=== PATIENT | male | born 1960 | race Caucasian/White ===

== ENCOUNTER 2016-12-21 12:17 | Emergency (ER) | payer OTHER ==
[~2016-12-21] VITALS: Ht 177.8 cm; Wt 125.0 kg
[~2016-12-21 12:17] MED LIST: BUPROPION XL150 MG PO; CLEOCIN300 MG PO; CLINDAMYCIN HC300 MG PO; FUROSEMIDE80 MG PO; GLIPIZIDE5 MG PO; GLUCOPHAGE1000 MG PO; INVOKANA300 MG PO; LORTAB 5-325 M1 EACH PO; LOSARTAN POTASS50 MG PO; LYRICA200 MG PO; METOLAZONE2.5 MG PO; MOTRIN600 MG PO; NEURONTIN600 MG PO; SUBOXONE 8 MG-1 EAC2 SL; TENORMIN25 MG PO; TESTOSTERO200 MG/12 IM
[2016-12-21 13:09] LABS: HEMATOCRIT 54.5 % (38.0-50.0); MCH 32.5 PG (29.0-34.0); MCHC 32.7 G/DL (30.0-36.0); MCV 99.6 FL (86-99); MEAN PLAT.VOLUME 9.9 uM^3 (9.0-12.4); PLATELET COUNT 212 K/uL (156-360); RBC DIS.WIDTH-CV 15.1 % (11.8-14.6); RBC DIS.WIDTH-SD 56.6 % (39-53); RED BLOOD COUNT 5.47 M/uL (4.00-5.50); WHITE BLOOD COUNT 8.5 K/uL (4.1-10.2)
[2016-12-21 13:17] LABS: CHLORIDE 101 mEq/L (99-109); SODIUM 138 mEq/L (136-147)
[2016-12-21 13:19] LABS: GLUCOSE 117 mg/dL (70-99)
[2016-12-21 13:21] LABS: ANION GAP 10 MEQ/L (2-14); TOTAL BILIRUBIN 0.6 mg/dL (0.0-1.0)
[2016-12-21 13:22] LABS: SERUM ETHYL ALCOHOL < 10 mg/dL
[2016-12-21 13:23] LABS: ALKALINE PHOSPHATASE 55 IU/L (3-129); GFR ESTIMATE (CALCULATED) > 59 mL/min/
[2016-12-21 13:24] LABS: UREA NITROGEN (BUN) 12 mg/dL (9-23)
[2016-12-21 14:07] VITALS: BP 113/62
== END 2016-12-21 14:14 | disposition home or self-care (01) ==
LOC: EME 12:17
PROVIDERS: Emergency Medicine
DX: F32.9 Major depressive disorder, single episode, unspecified (principal); Z91.19 Patient's noncompliance with other medical treatment and regimen; G89.29 Other chronic pain; E11.9 Type 2 diabetes mellitus without complications; M54.9 Dorsalgia, unspecified; F11.20 Opioid dependence, uncomplicated; F17.200 Nicotine dependence, unspecified, uncomplicated
CPT/HCPCS: 80053; 81003; 85027; 90837; 99281; 99285; G0480

== ENCOUNTER 2017-03-31 14:59 | Observation (INO) | payer OTHER ==
[~2017-03-31] VITALS: Ht 175.3 cm; Wt 121.2 kg
[~2017-03-31 14:59] MED LIST changes: -SUBOXONE 8 MG-1 EAC2 SL; +ZUBSOLV 8.6-2.1 EACH SL
[2017-03-31] MEDS ORDERED: FLUOXETINE HCL20 MG PO (16:56)
[2017-03-31 17:03] LABS: HEMATOCRIT 44.8 % (38.0-50.0); MCH 32.1 PG (29.0-34.0); MCHC 33.5 G/DL (30.0-36.0); MCV 95.7 FL (86-99); MEAN PLAT.VOLUME 10.3 uM^3 (9.0-12.4); PLATELET COUNT 210 K/uL (156-360); RBC DIS.WIDTH-CV 13.9 % (11.8-14.6); RBC DIS.WIDTH-SD 48.5 % (39-53); RED BLOOD COUNT 4.68 M/uL (4.00-5.50); WHITE BLOOD COUNT 11.6 K/uL (4.1-10.2)
[2017-03-31 17:28] LABS: TROP-I INTERPRETATION NEGATIVE; TROPONIN-I < 0.01 ng/mL (0.0-0.30)
[2017-03-31] MEDS ORDERED: LYRICA100 MG PO (18:12)
[2017-03-31] MEDS ORDERED: KLOR-CON 1010 ME1 PO (18:13)
[2017-03-31] MEDS ORDERED: DESYREL100 MG PO (18:19)
[2017-03-31] MEDS ORDERED: SIMVASTATIN20 MG PO (18:19)
[2017-03-31] MEDS ORDERED: MIRTAZAPINE30 MG PO (18:19)
[2017-03-31] MEDS ORDERED: IBUPROFEN600 MG PO (18:20)
[2017-03-31] MEDS ORDERED: MOTRIN400 MG PO (18:20)
[2017-03-31] MEDS ORDERED: NICODERM CQ1 EAC2 TD (18:21)
[2017-03-31 18:26] LABS: POINT-OF-CARE METER ID UU13113747
[2017-03-31 18:45] LABS: CHLORIDE 96 mEq/L (99-109); SODIUM 139 mEq/L (136-147)
[2017-03-31 18:47] LABS: GLUCOSE 104 mg/dL (70-99)
[2017-03-31 18:48] LABS: ANION GAP 14 MEQ/L (2-14)
[2017-03-31 18:51] LABS: GFR ESTIMATE (CALCULATED) > 59 mL/min/; UREA NITROGEN (BUN) 22 mg/dL (9-23)
[2017-03-31 20:00] LABS: TOTAL BILIRUBIN 0.4 mg/dL (0.0-1.0)
[2017-03-31 20:01] LABS: ALKALINE PHOSPHATASE 77 IU/L (3-129)
[2017-03-31 20:04] LABS: DIRECT BILIRUBIN 0.1 mg/dL (0.0-0.3)
[2017-03-31 20:04] LABS: TROP-I INTERPRETATION NEGATIVE; TROPONIN-I < 0.01 ng/mL (0.0-0.30)
[2017-03-31 20:05] LABS: LIPASE 24 U/L (1.0-51.0)
[2017-03-31 20:14] LABS: D-DIMER ELISA < 150.00 ng/mLDDU (<230)
[2017-03-31 20:43] VITALS: BP 127/60
[2017-03-31 20:57] LABS: POINT-OF-CARE METER ID UU13113700
[2017-04-01 01:10] LABS: TROP-I INTERPRETATION NEGATIVE; TROPONIN-I < 0.01 ng/mL (0.0-0.30)
[2017-04-01 04:06] VITALS: BP 11/58
[2017-04-01 05:19] LABS: HEMATOCRIT 43.4 % (38.0-50.0); MCH 32.5 PG (29.0-34.0); MCHC 33.9 G/DL (30.0-36.0); PLATELET COUNT 195 K/uL (156-360); RBC DIS.WIDTH-SD 49.5 % (39-53); RED BLOOD COUNT 4.52 M/uL (4.00-5.50); WHITE BLOOD COUNT 9.4 K/uL (4.1-10.2)
[2017-04-01 05:36] LABS: TROP-I INTERPRETATION NEGATIVE; TROPONIN-I 0.02 ng/mL (0.0-0.30)
[2017-04-01 06:01] LABS: ANION GAP 11 MEQ/L (2-14); CHLORIDE 96 MEQ/L (99-109); GFR ESTIMATE (CALCULATED) > 59 mL/min/; GLUCOSE 118 mg/dL (70-99); SAMPLE HEMOLYSIS CHECK 0; SAMPLE ICTERIC CHECK 0; SAMPLE LIPEMIA CHECK 0; SODIUM 139 MEQ/L (136-147); UREA NITROGEN (BUN) 17 mg/dL (9-23)
[2017-04-01 06:07] LABS: POTASSIUM 3.1 MEQ/L (3.7-5.4)
[2017-04-01 07:45] VITALS: BP 107/61
[2017-04-01 11:46] LABS: ADD MIUA? NO; BILIRUBIN NEGATIVE; BLOOD NEGATIVE; COLOR STRAW ((YELLOW)); GLUCOSE (STRIP) 50; KETONES NEGATIVE; LEUKOCYTES NEGATIVE; NITRITE NEGATIVE; PROTEIN (STRIP) NEGATIVE; SPECIFIC GRAVITY 1.006 (1.000-1.030); UROBILINOGEN 0.2 MG/DL (0.2-1.0)
[2017-04-01 12:10] LABS: AMPHETAMINES QUANT VALUE 0 NG/ML; BARBITUATES QUANT VALUE 0 NG/ML; BENZODIAZEPINES QUANT VALUE 0 NG/ML; BENZODIAZEPINES, URINE SCREEN Negative (200 ng/mL); MARIJUANA QUANT VALUE 0 NG/ML; OPIATES QUANTITATIVE VALUE 0 NG/ML; PHENCYCLIDINE QUANT VALUE 0 NG/ML
[2017-04-01 12:11] VITALS: BP 121/68
[2017-04-01 15:53] VITALS: BP 140/66
[2017-04-01 16:07] VITALS: BP 156/75
[2017-04-01 16:40] LABS: POINT-OF-CARE METER ID UU13113700
== END 2017-04-01 19:49 | disposition home or self-care (01) ==
LOC: EME 14:59 → 5WEST 19:09 → EDOF 19:09 → ENRESERV 19:13 → 5WEST 20:27
PROVIDERS: Hospitalist; Nurse Practitioner Family
DX: R07.89 Other chest pain (principal); R94.31 Abnormal electrocardiogram [ECG] [EKG]; I44.7 Left bundle-branch block, unspecified; I87.8 Other specified disorders of veins; E11.43 Type 2 diabetes mellitus with diabetic autonomic (poly)neuropathy; F41.8 Other specified anxiety disorders; R60.0 Localized edema
CPT/HCPCS: 71020; 80048; 80076; 80306 90; 81003; 82948; 83690; 84484; 85027; 85379; 93005; 93970; G0378; J0574; J1650

== ENCOUNTER 2017-05-19 11:09 | Emergency (ER) | payer OTHER ==
[~2017-05-19] VITALS: Ht 175.3 cm; Wt 126.6 kg
[~2017-05-19 11:09] MED LIST changes: +DESYREL100 MG PO; +FLUOXETINE HCL20 MG PO; +IBUPROFEN600 MG PO; +KLOR-CON 1010 ME1 PO; +LYRICA100 MG PO; +MIRTAZAPINE30 MG PO; +MOTRIN400 MG PO; +NICODERM CQ1 EAC2 TD; +SIMVASTATIN20 MG PO
[2017-05-19 12:59] VITALS: BP 112/63
== END 2017-05-19 12:59 | disposition home or self-care (01) ==
LOC: EME 11:09
DX: M25.562 Pain in left knee (principal); E11.9 Type 2 diabetes mellitus without complications; E78.5 Hyperlipidemia, unspecified; F17.200 Nicotine dependence, unspecified, uncomplicated
CPT/HCPCS: 73564; 99281; 99283

== ENCOUNTER 2017-07-12 12:47 | Inpatient (IN) | payer OTHER ==
[~2017-07-12] VITALS: Ht 177.8 cm; Wt 131.5 kg
[2017-07-12 13:42] LABS: HEMATOCRIT 38.5 % (38.0-50.0); MCH 32.2 PG (29.0-34.0); MCV 97.7 FL (86-99); MEAN PLAT.VOLUME 10.4 uM^3 (9.0-12.4); PLATELET COUNT 167 K/uL (156-360); RBC DIS.WIDTH-CV 13.4 % (11.8-14.6); RBC DIS.WIDTH-SD 48.4 % (39-53); RED BLOOD COUNT 3.94 M/uL (4.00-5.50); WHITE BLOOD COUNT 23.8 K/uL (4.1-10.2)
[2017-07-12 13:54] LABS: CHLORIDE 97 mEq/L (99-109); POTASSIUM 3.2 mEq/L (3.7-5.4); SODIUM 136 mEq/L (136-147)
[2017-07-12 13:56] LABS: GLUCOSE 165 mg/dL (70-99)
[2017-07-12 13:57] LABS: ANION GAP 11 MEQ/L (2-14)
[2017-07-12 14:00] LABS: GFR ESTIMATE (CALCULATED) > 59 mL/min/
[2017-07-12 14:01] LABS: UREA NITROGEN (BUN) 21 mg/dL (9-23)
[2017-07-12 14:04] LABS: TROP-I INTERPRETATION NEGATIVE; TROPONIN-I 0.02 ng/mL (0.0-0.30)
[2017-07-12] MEDS ORDERED: VIIBRYD20 MG PO (16:54)
[2017-07-12] MEDS ORDERED: NICOTINE PATCH1 EAC2 TD (16:55)
[2017-07-12] MEDS ORDERED: SUBOXONE 12 MG1 EACH SL (16:55)
[2017-07-12] MEDS ORDERED: METFORMIN HCL1000 MG PO (16:56)
[2017-07-12 19:05] VITALS: BP 108/56
[2017-07-12 20:09] LABS: TROP-I INTERPRETATION NEGATIVE; TROPONIN-I 0.01 ng/mL (0.0-0.30)
[2017-07-12 21:37] LABS: POINT-OF-CARE METER ID UU13113831
[2017-07-13 00:58] VITALS: BP 105/57
[2017-07-13 02:29] LABS: TROP-I INTERPRETATION NEGATIVE; TROPONIN-I < 0.01 ng/mL (0.0-0.30)
[2017-07-13 04:36] VITALS: BP 109/61
[2017-07-13 05:27] LABS: HEMATOCRIT 39.4 % (38.0-50.0); MCH 32.7 PG (29.0-34.0); MCHC 32.7 G/DL (30.0-36.0); MCV 99.7 FL (86-99); MEAN PLAT.VOLUME 10.6 uM^3 (9.0-12.4); PLATELET COUNT 182 K/uL (156-360); RBC DIS.WIDTH-CV 13.3 % (11.8-14.6); RBC DIS.WIDTH-SD 48.9 % (39-53); RED BLOOD COUNT 3.95 M/uL (4.00-5.50); WHITE BLOOD COUNT 21.1 K/uL (4.1-10.2)
[2017-07-13 06:01] LABS: ANION GAP 8 MEQ/L (2-14); CHLORIDE 96 MEQ/L (99-109); GFR ESTIMATE (CALCULATED) > 59 mL/min/; POTASSIUM 3.5 MEQ/L (3.7-5.4); SAMPLE HEMOLYSIS CHECK 0; SAMPLE ICTERIC CHECK 0; SAMPLE LIPEMIA CHECK 0; SODIUM 138 MEQ/L (136-147); UREA NITROGEN (BUN) 27 mg/dL (9-23)
[2017-07-13 06:02] LABS: GLUCOSE 279 mg/dL (70-99)
[2017-07-13 07:15] VITALS: BP 116/67
[2017-07-13 08:57] LABS: POINT-OF-CARE METER ID UU13113700
[2017-07-13 13:04] LABS: POINT-OF-CARE METER ID UU14162513
[2017-07-13 15:27] LABS: BASE EXCESS 7.2 mEq/L (-3 to +3); BICARBONATE 33.1 mEq/L (22-26); CARBOXY HGB 1.8 % (0-5); COMMENTS - BLOOD GASES A+C+; DEVICE NC; METHEMOGLOBIN 1.2 % (0-1.5); O2 FLOW 6 L/MIN; PCO2 51 mm Hg (35-45); PO2 54 mm Hg (80-100); SITE RR; TOTAL RESP RATE 12 resp/min; pH 7.42 (7.35-7.45)
[2017-07-13 16:25] VITALS: BP 114/62
[2017-07-13 17:32] LABS: POINT-OF-CARE METER ID UU13113700
[2017-07-13 20:36] VITALS: BP 150/56
[2017-07-13 21:55] LABS: POINT-OF-CARE METER ID UU13113700
[2017-07-13 23:42] VITALS: BP 113/56
[2017-07-14] VITALS (7 sets, daily range): BP systolic 102–133; BP diastolic 54–72
[2017-07-14 07:58] LABS: POINT-OF-CARE METER ID UU14162513
[2017-07-14 09:54] LABS: ANION GAP 10 MEQ/L (2-14); CHLORIDE 93 MEQ/L (99-109); GFR ESTIMATE (CALCULATED) > 59 mL/min/; GLUCOSE 266 mg/dL (70-99); POTASSIUM 3.2 MEQ/L (3.7-5.4); SAMPLE HEMOLYSIS CHECK 0; SAMPLE ICTERIC CHECK 0; SAMPLE LIPEMIA CHECK 0; SODIUM 136 MEQ/L (136-147); UREA NITROGEN (BUN) 28 mg/dL (9-23)
[2017-07-14 12:40] LABS: POINT-OF-CARE METER ID UU14162513
[2017-07-14 17:08] LABS: POINT-OF-CARE METER ID UU14162513
[2017-07-15 04:00] VITALS: BP 125/69
[2017-07-15 08:04] VITALS: BP 121/66
[2017-07-15 08:06] LABS: POINT-OF-CARE METER ID UU13113831
[2017-07-15 10:53] VITALS: BP 142/70
[2017-07-15 13:00] LABS: POINT-OF-CARE METER ID UU13113700
[2017-07-15 14:43] VITALS: BP 111/60
[2017-07-15 16:54] LABS: POINT-OF-CARE METER ID UU13113700
[2017-07-15 19:56] VITALS: BP 130/62
[2017-07-15 21:38] LABS: POINT-OF-CARE METER ID UU13113831
[2017-07-16 00:13] VITALS: BP 152/77
[2017-07-16 03:53] VITALS: BP 140/80
[2017-07-16 07:43] LABS: POINT-OF-CARE METER ID UU13113831
[2017-07-16 08:10] VITALS: BP 113/56
[2017-07-16 10:44] LABS: HEMATOCRIT 38.7 % (38.0-50.0); MCH 32.2 PG (29.0-34.0); MCHC 33.1 G/DL (30.0-36.0); MCV 97.2 FL (86-99); MEAN PLAT.VOLUME 10.6 uM^3 (9.0-12.4); PLATELET COUNT 225 K/uL (156-360); RBC DIS.WIDTH-CV 13.6 % (11.8-14.6); RBC DIS.WIDTH-SD 48.7 % (39-53); RED BLOOD COUNT 3.98 M/uL (4.00-5.50); WHITE BLOOD COUNT 20.1 K/uL (4.1-10.2)
[2017-07-16 10:51] VITALS: BP 128/63
[2017-07-16 11:18] LABS: ANION GAP 11 MEQ/L (2-14); CHLORIDE 93 MEQ/L (99-109); POTASSIUM 3.7 MEQ/L (3.7-5.4); SAMPLE HEMOLYSIS CHECK 0; SAMPLE ICTERIC CHECK 0; SAMPLE LIPEMIA CHECK 0; SODIUM 138 MEQ/L (136-147)
[2017-07-16 11:24] LABS: GFR ESTIMATE (CALCULATED) > 59 mL/min/; GLUCOSE 362 mg/dL (70-99); UREA NITROGEN (BUN) 28 mg/dL (9-23)
[2017-07-16 12:14] LABS: POINT-OF-CARE METER ID UU13113831
[2017-07-16 16:00] VITALS: BP 123/72
[2017-07-16 17:28] LABS: POINT-OF-CARE METER ID UU13113831
[2017-07-16 19:00] VITALS: BP 105/60
[2017-07-17 00:15] VITALS: BP 117/58
[2017-07-17 04:51] VITALS: BP 126/66
[2017-07-17 05:38] LABS: HEMATOCRIT 39.9 % (38.0-50.0); MCH 31.7 PG (29.0-34.0); MCHC 32.6 G/DL (30.0-36.0); MCV 97.3 FL (86-99); MEAN PLAT.VOLUME 10.3 uM^3 (9.0-12.4); NRBC (%) 0.1 /100 WBC (0-0); PLATELET COUNT 239 K/uL (156-360); RBC DIS.WIDTH-CV 13.7 % (11.8-14.6); RBC DIS.WIDTH-SD 49.6 % (39-53); WHITE BLOOD COUNT 22.8 K/uL (4.1-10.2)
[2017-07-17 05:43] LABS: INTER. NORMALIZED RATIO 1.1; PROTHROMBIN TIME 12.8 SEC (10.2-12.9)
[2017-07-17 06:03] LABS: ANION GAP 9 MEQ/L (2-14); CHLORIDE 92 MEQ/L (99-109); GFR ESTIMATE (CALCULATED) > 59 mL/min/; GLUCOSE 266 mg/dL (70-99); SAMPLE HEMOLYSIS CHECK 0; SAMPLE ICTERIC CHECK 0; SAMPLE LIPEMIA CHECK 0; SODIUM 137 MEQ/L (136-147); UREA NITROGEN (BUN) 28 mg/dL (9-23)
[2017-07-17 07:21] VITALS: BP 151/72
[2017-07-17 08:49] LABS: POINT-OF-CARE METER ID UU13113700
[2017-07-17 11:56] VITALS: BP 149/80
[2017-07-17 12:57] LABS: POINT-OF-CARE METER ID UU14162513
[2017-07-17 15:53] VITALS: BP 134/67
[2017-07-17 17:10] LABS: POINT-OF-CARE METER ID UU14162513
[2017-07-17 18:40] VITALS: BP 129/58
[2017-07-17 21:33] LABS: POINT-OF-CARE METER ID UU14162513
[2017-07-18] VITALS (7 sets, daily range): BP systolic 109–144; BP diastolic 55–75
[2017-07-18 08:47] LABS: POINT-OF-CARE METER ID UU13113700
[2017-07-18 11:32] LABS: TYPE OF FLUID PLEURAL
[2017-07-18 12:19] LABS: BODY FLUID WBC'S 28750 /MM^3 (0-500); WBC AREA COUNTED 0.4; WBC DILUTION 10; WHITE CELL RAW COUNT 115
[2017-07-18 12:20] LABS: BODY FLUID RBC'S 188000 /MM^3 (0-100)
[2017-07-18 12:26] LABS: BODY FLUID LDH 6906 IU/L; BODY FLUID PROTEIN 4.9 G/DL
[2017-07-18 12:39] LABS: BODY FLUID EOSINOPHILS 0 % (0-25); MONONUCLEAR WBC'S 0 %; POLY RAW COUNT 100; POLYNUCLEAR WBC'S 100 % (0-25)
[2017-07-18 13:01] LABS: POINT-OF-CARE METER ID UU13113700
[2017-07-18 13:46] LABS: ANION GAP 8 MEQ/L (2-14); CHLORIDE 94 MEQ/L (99-109); GFR ESTIMATE (CALCULATED) > 59 mL/min/; GLUCOSE 293 mg/dL (70-99); SAMPLE HEMOLYSIS CHECK 0; SAMPLE ICTERIC CHECK 0; SAMPLE LIPEMIA CHECK 0; SODIUM 135 MEQ/L (136-147); UREA NITROGEN (BUN) 23 mg/dL (9-23)
[2017-07-18 16:32] LABS: POINT-OF-CARE METER ID UU14162513
[2017-07-18 21:31] LABS: POINT-OF-CARE METER ID UU13113700
[2017-07-19 04:15] VITALS: BP 128/61
[2017-07-19 07:50] VITALS: BP 114/57
[2017-07-19 10:05] LABS: POINT-OF-CARE METER ID UU13113700
[2017-07-19 12:09] VITALS: BP 116/55
[2017-07-19 13:22] LABS: POINT-OF-CARE METER ID UU13113700
[2017-07-19 16:50] VITALS: BP 115/56
[2017-07-19 17:31] LABS: POINT-OF-CARE METER ID UU14162513
[2017-07-19 20:09] VITALS: BP 117/57
[2017-07-19 21:44] LABS: POINT-OF-CARE METER ID UU14162513
[2017-07-20 00:05] VITALS: BP 108/56
[2017-07-20 03:08] VITALS: BP 119/63
[2017-07-20 08:19] LABS: POINT-OF-CARE METER ID UU14162513
[2017-07-20 09:17] LABS: HEMATOCRIT 43.3 % (38.0-50.0); MCHC 32.1 G/DL (30.0-36.0); MCV 99.5 FL (86-99); MEAN PLAT.VOLUME 9.7 uM^3 (9.0-12.4); NRBC (%) 0.1 /100 WBC (0-0); PLATELET COUNT 208 K/uL (156-360); RBC DIS.WIDTH-CV 14.1 % (11.8-14.6); RBC DIS.WIDTH-SD 52.1 % (39-53); RED BLOOD COUNT 4.35 M/uL (4.00-5.50); WHITE BLOOD COUNT 25.2 K/uL (4.1-10.2)
[2017-07-20 09:32] LABS: ANION GAP 7 MEQ/L (2-14); CHLORIDE 96 MEQ/L (99-109); SAMPLE HEMOLYSIS CHECK 0; SAMPLE ICTERIC CHECK 0; SAMPLE LIPEMIA CHECK 0; SODIUM 140 MEQ/L (136-147)
[2017-07-20 09:38] LABS: GFR ESTIMATE (CALCULATED) > 59 mL/min/; UREA NITROGEN (BUN) 16 mg/dL (9-23)
[2017-07-20 09:46] VITALS: BP 112/56
[2017-07-20 09:46] LABS: GLUCOSE 141 mg/dL (70-99)
[2017-07-20 10:24] LABS: ABS NEUTROPHIL COUNT 20.7; ANISOCYTOSIS 1+; ATYPICAL LYMPHOCYTE 3.9 %; BAND NEUTROPHILS 5.2 % (0-8.0); EOSINOPHIL ABS CT 0.1; EOSINOPHILS 0.4 % (0-5.0); INSTRUMENT ABS NEUTROPHIL CT 17.9 K/uL; LYMPHOCYTES 6.5 % (15.0-45.0); MACROCYTES 1+; METAMYELOCYTES 0.9 %; MYELOCYTES 0.8 %; PLAT.SUFFICIENCY ADEQUATE; POLYCHROMASIA 1+; SEG.NEUTROPHILS 77.1 % (46.0-76.0)
[2017-07-20 12:04] VITALS: BP 103/57
[2017-07-20 12:07] LABS: POINT-OF-CARE METER ID UU13113831
[2017-07-20 16:09] VITALS: BP 116/60
[2017-07-20 17:29] LABS: POINT-OF-CARE METER ID UU13113831
[2017-07-20 19:30] VITALS: BP 121/58
[2017-07-20 21:25] LABS: POINT-OF-CARE METER ID UU13113831
[2017-07-21] VITALS (8 sets, daily range): BP systolic 0–129; BP diastolic 0–67
[2017-07-21 05:51] LABS: MCH 31.4 PG (29.0-34.0); MCHC 31.9 G/DL (30.0-36.0); MCV 98.6 FL (86-99); MEAN PLAT.VOLUME 9.9 uM^3 (9.0-12.4); NRBC (%) 0.1 /100 WBC (0-0); PLATELET COUNT 217 K/uL (156-360); RBC DIS.WIDTH-CV 14.2 % (11.8-14.6); RBC DIS.WIDTH-SD 52.8 % (39-53); RED BLOOD COUNT 4.36 M/uL (4.00-5.50); WHITE BLOOD COUNT 27.5 K/uL (4.1-10.2)
[2017-07-21 05:56] LABS: ANION GAP 6 MEQ/L (2-14); CHLORIDE 96 MEQ/L (99-109); GFR ESTIMATE (CALCULATED) > 59 mL/min/; GLUCOSE 130 mg/dL (70-99); POTASSIUM 3.9 MEQ/L (3.7-5.4); SAMPLE HEMOLYSIS CHECK 0; SAMPLE ICTERIC CHECK 0; SAMPLE LIPEMIA CHECK 0; SODIUM 138 MEQ/L (136-147); UREA NITROGEN (BUN) 15 mg/dL (9-23)
[2017-07-21 06:35] LABS: ABS NEUTROPHIL COUNT 22.7; ANISOCYTOSIS 1+; ATYPICAL LYMPHOCYTE 1.8 %; BAND NEUTROPHILS 3.5 % (0-8.0); EOSINOPHIL ABS CT 0.1; EOSINOPHILS 0.4 % (0-5.0); INSTRUMENT ABS NEUTROPHIL CT 21.5 K/uL; LYMPHOCYTES 6.2 % (15.0-45.0); MYELOCYTES 4.9 %; PLAT.SUFFICIENCY ADEQUATE; SEG.NEUTROPHILS 79.2 % (46.0-76.0); SPHEROCYTES 2+; STOMATOCYTES 2+
[2017-07-21 12:18] LABS: POINT-OF-CARE METER ID UU13113675
[2017-07-21 16:36] LABS: POINT-OF-CARE METER ID UU13113803
[2017-07-21 18:45] LABS: METH RESISTANT S AUREUS PCR NEGATIVE (NEGATIVE); PROBE CHECK PASS; SPECIMEN PROCESSING CONTROL PASS
[2017-07-21 22:34] LABS: POINT-OF-CARE METER ID UU14314082
[2017-07-22] VITALS (8 sets, daily range): BP systolic 94–111; BP diastolic 50–65
[2017-07-22 08:53] LABS: HEMATOCRIT 32.4 % (38.0-50.0); MCH 31.5 PG (29.0-34.0); MCHC 31.5 G/DL (30.0-36.0); MEAN PLAT.VOLUME 9.4 uM^3 (9.0-12.4); PLATELET COUNT 156 K/uL (156-360); RBC DIS.WIDTH-CV 14.1 % (11.8-14.6); RBC DIS.WIDTH-SD 51.8 % (39-53)
[2017-07-22 08:54] LABS: RED BLOOD COUNT 3.24 M/uL (4.00-5.50)
[2017-07-22 09:07] LABS: ANION GAP 2 MEQ/L (2-14); CHLORIDE 98 MEQ/L (99-109); GFR ESTIMATE (CALCULATED) > 59 mL/min/; GLUCOSE 122 mg/dL (70-99); POTASSIUM 4.4 MEQ/L (3.7-5.4); SAMPLE HEMOLYSIS CHECK 0; SAMPLE ICTERIC CHECK 0; SAMPLE LIPEMIA CHECK 0; SODIUM 137 MEQ/L (136-147); UREA NITROGEN (BUN) 15 mg/dL (9-23)
[2017-07-22 12:48] LABS: POINT-OF-CARE METER ID UU14314083
[2017-07-22 16:43] LABS: POINT-OF-CARE METER ID UU14314083
[2017-07-22 21:45] LABS: POINT-OF-CARE METER ID UU14314082
[2017-07-23] VITALS (11 sets, daily range): BP systolic 92–134; BP diastolic 45–70
[2017-07-23 06:05] LABS: EOSINOPHIL (%) 0 % (0-5); HEMATOCRIT 31.2 % (38.0-50.0); IMMATURE GRANULOCYTE (%) 1.9 % (0.0-0.7); IMMATURE GRANULOCYTE COUNT 0.4 K/uL; INSTRUMENT ABS NEUTROPHIL CT 19.3 K/uL; LYMPHOCYTE COUNT 1.5 K/uL (1.0-2.8); MCH 32.2 PG (29.0-34.0); MCHC 32.4 G/DL (30.0-36.0); MCV 99.4 FL (86-99); MONOCYTE (%) 5.5 % (3-12); MONOCYTE COUNT 1.2 K/uL (0-0.8); NEUTROPHIL (%) 85.9 % (45-76); NEUTROPHIL COUNT 19.3 K/uL (1.8-6.4); PLATELET COUNT 179 K/uL (156-360); RBC DIS.WIDTH-CV 13.8 % (11.8-14.6); RBC DIS.WIDTH-SD 50.4 % (39-53); RED BLOOD COUNT 3.14 M/uL (4.00-5.50); WHITE BLOOD COUNT 22.5 K/uL (4.1-10.2)
[2017-07-23 06:38] LABS: ANION GAP 9 MEQ/L (2-14); CHLORIDE 99 MEQ/L (99-109); GFR ESTIMATE (CALCULATED) > 59 mL/min/ (58.99-99999); GLUCOSE 108 mg/dL (70-99); POTASSIUM 3.7 MEQ/L (3.7-5.4); SAMPLE HEMOLYSIS CHECK 0; SAMPLE ICTERIC CHECK 0; SAMPLE LIPEMIA CHECK 0; SODIUM 140 MEQ/L (136-147); UREA NITROGEN (BUN) 12 mg/dL (9-23)
[2017-07-23 08:08] LABS: POINT-OF-CARE METER ID UU14314083
[2017-07-23 13:24] LABS: POINT-OF-CARE METER ID UU14314083
[2017-07-23 17:14] LABS: POINT-OF-CARE METER ID UU14314082
[2017-07-23 21:12] LABS: POINT-OF-CARE METER ID UU14174217
[2017-07-24 00:15] VITALS: BP 98/52
[2017-07-24 04:00] VITALS: BP 96/70
[2017-07-24 05:20] LABS: HEMATOCRIT 32.7 % (38.0-50.0); MCH 31.3 PG (29.0-34.0); MCHC 31.2 G/DL (30.0-36.0); MCV 100.3 FL (86-99); MEAN PLAT.VOLUME 9.6 uM^3 (9.0-12.4); RBC DIS.WIDTH-CV 13.8 % (11.8-14.6); RED BLOOD COUNT 3.26 M/uL (4.00-5.50); WHITE BLOOD COUNT 17.9 K/uL (4.1-10.2)
[2017-07-24 05:28] LABS: PLATELET COUNT 240 K/uL (156-360)
[2017-07-24 05:45] LABS: ANION GAP 8 MEQ/L (2-14); CHLORIDE 101 MEQ/L (99-109); GFR ESTIMATE (CALCULATED) > 59 mL/min/ (58.99-99999); GLUCOSE 105 mg/dL (70-99); POTASSIUM 3.6 MEQ/L (3.7-5.4); SAMPLE HEMOLYSIS CHECK 0; SAMPLE ICTERIC CHECK 0; SAMPLE LIPEMIA CHECK 0; SODIUM 142 MEQ/L (136-147); UREA NITROGEN (BUN) 12 mg/dL (9-23)
[2017-07-24 08:00] VITALS: BP 118/65
[2017-07-24 11:00] VITALS: BP 104/52
[2017-07-24 12:31] LABS: POINT-OF-CARE METER ID UU14162636
[2017-07-24 15:00] VITALS: BP 115/57
[2017-07-24 17:38] LABS: POINT-OF-CARE METER ID UU14208751
[2017-07-24 20:00] VITALS: BP 124/62
[2017-07-24 22:09] LABS: POINT-OF-CARE METER ID UU14162636
[2017-07-25] VITALS (7 sets, daily range): BP systolic 104–126; BP diastolic 57–69
[2017-07-25 09:07] LABS: POINT-OF-CARE METER ID UU14162636
[2017-07-25 12:47] LABS: POINT-OF-CARE METER ID UU14174217
[2017-07-25 16:56] LABS: POINT-OF-CARE METER ID UU14208751
[2017-07-25 23:44] LABS: POINT-OF-CARE METER ID UU14208751
[2017-07-26 00:15] VITALS: BP 138/65
[2017-07-26 04:11] VITALS: BP 113/56
[2017-07-26 09:06] VITALS: BP 106/57
[2017-07-26 12:02] VITALS: BP 123/76
[2017-07-26 12:06] LABS: POINT-OF-CARE METER ID UU13113781
[2017-07-26 15:02] VITALS: BP 125/57
[2017-07-26 16:27] LABS: POINT-OF-CARE METER ID UU13113781
[2017-07-26 19:35] VITALS: BP 110/58
[2017-07-26 22:53] LABS: POINT-OF-CARE METER ID UU14314088
[2017-07-27 00:10] VITALS: BP 107/52
[2017-07-27 05:00] VITALS: BP 118/58
[2017-07-27 05:00] LABS: CHLORIDE 101 mEq/L (99-109); SODIUM 139 mEq/L (136-147)
[2017-07-27 05:01] LABS: GLUCOSE 119 mg/dL (70-99); HEMATOCRIT 32.7 % (38.0-50.0); MCH 31.9 PG (29.0-34.0); MCHC 31.8 G/DL (30.0-36.0); MCV 100.3 FL (86-99); MEAN PLAT.VOLUME 9.3 uM^3 (9.0-12.4); RBC DIS.WIDTH-CV 14.1 % (11.8-14.6); RBC DIS.WIDTH-SD 51.6 % (39-53); RED BLOOD COUNT 3.26 M/uL (4.00-5.50); WHITE BLOOD COUNT 15.2 K/uL (4.1-10.2)
[2017-07-27 05:03] LABS: ANION GAP 7 MEQ/L (2-14)
[2017-07-27 05:05] LABS: GFR ESTIMATE (CALCULATED) > 59 mL/min/ (58.99-99999); PLATELET COUNT 380 K/uL (156-360)
[2017-07-27 05:06] LABS: UREA NITROGEN (BUN) 15 mg/dL (9-23)
[2017-07-27 05:07] LABS: POTASSIUM 4.5 mEq/L (3.7-5.4)
[2017-07-27 07:58] VITALS: BP 119/72
[2017-07-27 08:11] LABS: POINT-OF-CARE METER ID UU13113781
[2017-07-27 11:20] LABS: POINT-OF-CARE METER ID UU14174216
[2017-07-27 12:51] VITALS: BP 123/60
[2017-07-27 15:50] VITALS: BP 124/64
[2017-07-27 16:34] LABS: POINT-OF-CARE METER ID UU14174216
[2017-07-27 20:20] VITALS: BP 102/54
[2017-07-27 20:45] LABS: POINT-OF-CARE METER ID UU14314088
[2017-07-28 00:34] VITALS: BP 102/55
[2017-07-28 04:42] VITALS: BP 126/60
[2017-07-28 05:29] LABS: EOSINOPHIL (%) 0.5 % (0-5); EOSINOPHIL COUNT 0.1 K/uL (0-0.3); IMMATURE GRANULOCYTE (%) 0.6 % (0.0-0.7); IMMATURE GRANULOCYTE COUNT 0.1 K/uL; INSTRUMENT ABS NEUTROPHIL CT 9.9 K/uL; LYMPHOCYTE COUNT 3.5 K/uL (1.0-2.8); MCHC 31.8 G/DL (30.0-36.0); MCV 100.9 FL (86-99); MEAN PLAT.VOLUME 9.4 uM^3 (9.0-12.4); MONOCYTE (%) 5.4 % (3-12); MONOCYTE COUNT 0.8 K/uL (0-0.8); NEUTROPHIL COUNT 9.9 K/uL (1.8-6.4); PLATELET COUNT 373 K/uL (156-360); RBC DIS.WIDTH-CV 14.1 % (11.8-14.6); RED BLOOD COUNT 3.37 M/uL (4.00-5.50); WHITE BLOOD COUNT 14.4 K/uL (4.1-10.2)
[2017-07-28 05:56] LABS: ANION GAP 7 MEQ/L (2-14); CHLORIDE 101 MEQ/L (99-109); GFR ESTIMATE (CALCULATED) > 59 mL/min/ (58.99-99999); GLUCOSE 135 mg/dL (70-99); POTASSIUM 4.5 MEQ/L (3.7-5.4); SAMPLE HEMOLYSIS CHECK 0; SAMPLE ICTERIC CHECK 0; SAMPLE LIPEMIA CHECK 0; SODIUM 140 MEQ/L (136-147); UREA NITROGEN (BUN) 18 mg/dL (9-23)
[2017-07-28 07:44] LABS: POINT-OF-CARE METER ID UU14174216; POINT-OF-CARE USER ID NUTSLF44
[2017-07-28 08:05] VITALS: BP 126/62
[2017-07-28 11:36] LABS: POINT-OF-CARE METER ID UU14174216; POINT-OF-CARE USER ID NUTSLF44
[2017-07-28] MEDS ORDERED: SPIRIVA RESPIMAT4 GM IH (11:55)
[2017-07-28] MEDS ORDERED: MUCINEX600 MG PO (11:58)
[2017-07-28] MEDS ORDERED: ADVAIR HFA120 INHALA IH (11:58)
[2017-07-28] MEDS ORDERED: PREDNISONE10 MG PO (11:58)
[2017-07-28] MEDS ORDERED: AUGMENTIN875 MG PO (11:59)
[2017-07-28 12:05] VITALS: BP 118/58
[2017-07-28] MEDS ORDERED: INCRUSE ELLI62.5 MCG IH (12:30)
[2017-07-28] MEDS ORDERED: AIRDUO RESPICL1 EAC1 IH (12:30)
[2017-07-28 16:00] VITALS: BP 112/62
[2017-07-28 16:42] LABS: POINT-OF-CARE METER ID UU14174216; POINT-OF-CARE USER ID NUTSLF44
== END 2017-07-28 18:22 | disposition home or self-care (01) | DRG 166 ==
LOC: EME 12:47 → EDOF 15:57 → 5WEST 15:57 → ENRESERV 16:08 → 5WEST 17:21 → CANRESERV 07-13 10:13 → ENRESERV 07-13 10:13 → 5WEST 07-21 09:35 → ENRESERV 07-21 12:46 → 4WEST 07-21 14:04 → ENRESERV 07-25 22:40 → CANRESERV 07-25 22:40 → 4EAST 07-26 00:18 → ENRESERV 07-26 00:18 → 4EAST 07-26 03:11 → ENRESERV 07-26 05:59 → 4EAST 07-26 05:59 → ENPENDDIS 07-28 → 4EAST 07-28 18:22
PROVIDERS: Internal Medicine; Internal Medicine Pulmonary Disease; Nurse Practitioner Adult Health; Nurse Practitioner Family; Physician Assistant; Surgery; Thoracic Surgery (Cardiothoracic Vascular Surgery)
PROC: 0W993ZX Drainage of Right Pleural Cavity, Percutaneous Approach, Diagnostic (ICD-10-PCS; principal; 2017-07-18)
PROC: 0BCN4ZZ Extirpation of Matter from Right Pleura, Percutaneous Endoscopic Approach (ICD-10-PCS; 2017-07-21)
PROC: 0W9940Z Drainage of Right Pleural Cavity with Drainage Device, Percutaneous Endoscopic Approach (ICD-10-PCS; 2017-07-21)
PROC: 0BPQX0Z Removal of Drainage Device from Pleura, External Approach (ICD-10-PCS; 2017-07-27)
DX: J15.3 Pneumonia due to streptococcus, group B (principal); J44.0 Chronic obstructive pulmonary disease with (acute) lower respiratory infection; J86.9 Pyothorax without fistula; B95.1 Streptococcus, group B, as the cause of diseases classified elsewhere; J91.8 Pleural effusion in other conditions classified elsewhere; J44.1 Chronic obstructive pulmonary disease with (acute) exacerbation; B37.0 Candidal stomatitis; E11.42 Type 2 diabetes mellitus with diabetic polyneuropathy; J98.11 Atelectasis; E87.6 Hypokalemia; D72.829 Elevated white blood cell count, unspecified; T38.0X5A Adverse effect of glucocorticoids and synthetic analogues, initial encounter; R91.1 Solitary pulmonary nodule; I10 Essential (primary) hypertension; K43.9 Ventral hernia without obstruction or gangrene; G89.4 Chronic pain syndrome; M54.9 Dorsalgia, unspecified; B19.20 Unspecified viral hepatitis C without hepatic coma; I87.2 Venous insufficiency (chronic) (peripheral); F32.9 Major depressive disorder, single episode, unspecified; F17.200 Nicotine dependence, unspecified, uncomplicated; Z71.6 Tobacco abuse counseling; F11.20 Opioid dependence, uncomplicated; Z79.84 Long term (current) use of oral hypoglycemic drugs; Z83.3 Family history of diabetes mellitus
CPT/HCPCS: 36600; 71010; 71020; 71275; 74176; 76942; 80048; 82803; 82945; 82948; 83605; 83615 91; 83880; 84157; 84484; 85025; 85027; 85610; 85730; 86850; 86900; 86901; 87040; 87070; 87075; 87076; 87077; 87205; 87449; 87641; 88108; 88304; 88305; 89051; 93005; 93306; 94010; 94640; 94640 76; 94667; 94668; 94760; 94799; 97530 GO; 97530 GP; 99202; 99281; 99285; G0378; J0295; J0330; J0572; J0696; J1644; J1650; J1815; J1885; J2250; J2405; J2710; J2930; J3010; J7050; J7120; J7512

== ENCOUNTER 2017-07-31 21:08 | Emergency (ER) | payer OTHER ==
[~2017-07-31] VITALS: Ht 177.8 cm; Wt 125.4 kg
[~2017-07-31 21:08] MED LIST changes: +ADVAIR HFA120 INHALA IH; +AIRDUO RESPICL1 EAC1 IH; +AUGMENTIN875 MG PO; +INCRUSE ELLI62.5 MCG IH; +METFORMIN HCL1000 MG PO; +MUCINEX600 MG PO; +NICOTINE PATCH1 EAC2 TD; +PREDNISONE10 MG PO; +SPIRIVA RESPIMAT4 GM IH; +SUBOXONE 12 MG1 EACH SL; +VIIBRYD20 MG PO
[2017-08-01 00:10] VITALS: BP 106/56
== END 2017-08-01 00:13 | disposition home or self-care (01) ==
LOC: EXP 21:08 → EME 21:08 → EXP 08-01 00:13
DX: Z48.01 Encounter for change or removal of surgical wound dressing (principal); Z98.890 Other specified postprocedural states; I10 Essential (primary) hypertension; E11.9 Type 2 diabetes mellitus without complications; Z79.84 Long term (current) use of oral hypoglycemic drugs; Z87.891 Personal history of nicotine dependence
CPT/HCPCS: 71020; 99281; 99284

== ENCOUNTER 2017-09-30 09:16 | Inpatient (IN) | payer OTHER ==
[~2017-09-30] VITALS: Ht 177.8 cm; Wt 132.0 kg
[2017-09-30 10:14] LABS: BASOPHIL (%) 0.3 % (0-1); EOSINOPHIL (%) 0.6 % (0-5); EOSINOPHIL COUNT 0.1 K/uL (0-0.3); HEMATOCRIT 37.7 % (38.0-50.0); HEMOGLOBIN 12.2 G/DL (12.5-16.6); IMMATURE GRANULOCYTE (%) 0.5 % (0.0-0.7); LYMPHOCYTE (%) 7.6 % (15-42); LYMPHOCYTE COUNT 0.9 K/uL (1.0-2.8); MCH 29.6 PG (29.0-34.0); MCHC 32.4 G/DL (30.0-36.0); MCV 91.5 FL (86-99); MONOCYTE (%) 6.8 % (3-12); MONOCYTE COUNT 0.8 K/uL (0-0.8); NEUTROPHIL (%) 84.2 % (45-76); NEUTROPHIL COUNT 10.2 K/uL (1.8-6.4); PLATELET COUNT 235 K/uL (156-360); RBC DIS.WIDTH-CV 15.3 % (11.8-14.6); RBC DIS.WIDTH-SD 51.6 % (39-53); RED BLOOD COUNT 4.12 M/uL (4.00-5.50); WHITE BLOOD COUNT 12.1 K/uL (4.1-10.2)
[2017-09-30 10:22] LABS: CHLORIDE 95 mEq/L (99-109); POTASSIUM 4.3 mEq/L (3.7-5.4); SODIUM 133 mEq/L (136-147)
[2017-09-30 10:24] LABS: GLUCOSE 138 mg/dL (70-99)
[2017-09-30 10:28] LABS: CREATININE 0.9 mg/dL (0.6-1.3); GFR ESTIMATE (CALCULATED) > 59 mL/min/ (58.99-99999)
[2017-09-30 10:29] LABS: UREA NITROGEN (BUN) 15 mg/dL (9-23)
[2017-09-30] MEDS ORDERED: FLUOXETINE HCL20 MG PO (12:45)
[2017-09-30] MEDS ORDERED: BREO ELLIPTA 21 EACH IH (12:47)
[2017-09-30] MEDS ORDERED: GLIPIZIDE5 MG PO (12:48)
[2017-09-30] MEDS ORDERED: IBUPROFEN400 MG PO (12:53)
[2017-09-30] MEDS ORDERED: BUPROPION XL150 MG PO (12:56)
[2017-09-30] MEDS ORDERED: BUPROPION XL300 MG PO (12:56)
[2017-09-30 15:10] VITALS: BP 122/58
[2017-09-30 15:15] VITALS: BP 122/58
[2017-09-30 19:28] VITALS: BP 105/54
[2017-09-30 23:26] VITALS: BP 117/57
[2017-10-01 04:57] LABS: HEMATOCRIT 35.5 % (38.0-50.0); HEMOGLOBIN 11.3 G/DL (12.5-16.6); MCH 29.1 PG (29.0-34.0); MCHC 31.8 G/DL (30.0-36.0); MCV 91.5 FL (86-99); PLATELET COUNT 229 K/uL (156-360); RBC DIS.WIDTH-CV 15.1 % (11.8-14.6); RBC DIS.WIDTH-SD 50.5 % (39-53); RED BLOOD COUNT 3.88 M/uL (4.00-5.50); WHITE BLOOD COUNT 13.6 K/uL (4.1-10.2)
[2017-10-01 05:08] LABS: CHLORIDE 97 MEQ/L (99-109); POTASSIUM 3.9 MEQ/L (3.7-5.4); SODIUM 132 MEQ/L (136-147)
[2017-10-01 05:14] LABS: CREATININE 0.9 MG/DL (0.6-1.3); GFR ESTIMATE (CALCULATED) > 59 mL/min/ (58.99-99999); UREA NITROGEN (BUN) 21 mg/dL (9-23)
[2017-10-01 05:15] LABS: GLUCOSE 214 mg/dL (70-99)
[2017-10-01 08:23] VITALS: BP 106/55
[2017-10-01 11:39] VITALS: BP 121/59
[2017-10-01 16:40] VITALS: BP 174/78
[2017-10-01 19:17] VITALS: BP 109/56
[2017-10-01 23:14] VITALS: BP 119/66
[2017-10-02 04:02] VITALS: BP 107/62
[2017-10-02 07:30] VITALS: BP 102/57
[2017-10-02 09:32] LABS: HEMATOCRIT 36.5 % (38.0-50.0); HEMOGLOBIN 11.2 G/DL (12.5-16.6); MCH 28.8 PG (29.0-34.0); MCHC 30.7 G/DL (30.0-36.0); MCV 93.8 FL (86-99); PLATELET COUNT 251 K/uL (156-360); RBC DIS.WIDTH-CV 15.3 % (11.8-14.6); RBC DIS.WIDTH-SD 53.1 % (39-53); RED BLOOD COUNT 3.89 M/uL (4.00-5.50); WHITE BLOOD COUNT 17.3 K/uL (4.1-10.2)
[2017-10-02 09:45] LABS: CHLORIDE 98 MEQ/L (99-109); POTASSIUM 4.4 MEQ/L (3.7-5.4); SODIUM 135 MEQ/L (136-147)
[2017-10-02 09:51] LABS: CREATININE 0.8 MG/DL (0.6-1.3); GFR ESTIMATE (CALCULATED) > 59 mL/min/ (58.99-99999); GLUCOSE 280 mg/dL (70-99); UREA NITROGEN (BUN) 23 mg/dL (9-23)
[2017-10-02 11:47] VITALS: BP 121/57
[2017-10-02 15:23] VITALS: BP 110/58
[2017-10-02 19:18] VITALS: BP 115/55
[2017-10-02 23:36] VITALS: BP 124/68
[2017-10-03 04:32] VITALS: BP 124/58
[2017-10-03 07:31] VITALS: BP 119/69
[2017-10-03] MEDS ORDERED: PREDNISONE10 MG PO (10:04)
[2017-10-03] MEDS ORDERED: CEFDINIR300 MG PO (10:04)
[2017-10-03] MEDS ORDERED: PROAIR HFA8.5 GM IH (10:15)
[2017-10-03 11:26] VITALS: BP 134/73
== END 2017-10-03 13:34 | disposition home or self-care (01) | DRG 189 ==
LOC: EME 09:16 → 3EAST 11:09 → EDOF 11:09 → ENRESERV 11:10 → 3EAST 15:03
PROVIDERS: Emergency Medicine; Internal Medicine; Physician Assistant
DX: J96.01 Acute respiratory failure with hypoxia (principal); J18.9 Pneumonia, unspecified organism; E87.1 Hypo-osmolality and hyponatremia; I87.8 Other specified disorders of veins; E11.42 Type 2 diabetes mellitus with diabetic polyneuropathy; F17.200 Nicotine dependence, unspecified, uncomplicated; E66.9 Obesity, unspecified; Z68.41 Body mass index [BMI] 40.0-44.9, adult; J44.0 Chronic obstructive pulmonary disease with (acute) lower respiratory infection; E11.9 Type 2 diabetes mellitus without complications; Z83.3 Family history of diabetes mellitus; I10 Essential (primary) hypertension; J43.9 Emphysema, unspecified
CPT/HCPCS: 71045; 80048; 82948; 85025; 85027; 87040; 87070; 87205; 87449; 87502; 93005; 94010; 94640; 94640 76; 94799; 99202; 99281; 99285; J0456; J0574; J0696; J1650; J1815; J2930; J7030